=== PATIENT | male | born 1965 | race Caucasian/White ===

== ENCOUNTER 2018-03-18 15:25 | Emergency (ER) | payer BC, OTHER ==
[2018-03-18] MEDS: fentaNYL 100 MCG/2 ML SDV IVPUSH PRN ×2 (13:38→14:28)
--- NOTE | 2018-03-18 14:28 | EDM.PDOC ---
ED HPI GENERAL MEDICAL PROBLEM - General Chief Complaint: Trauma Stated Complaint: right hand pain Time Seen by Provider: 03/18/18 13:20 Source of Information: Reports: Patient, EMS History Limitations: Reports: No Limitations - History of Present Illness INITIAL COMMENTS - FREE TEXT/NARRATIVE: Patient presents per EMS with complaints of right hand pain. Was out working at [employer] in [place]. Was up on a ladder about 6 feet in the air working on equipment. The ladder started to tip and he grabbed on to the beam. Hand got caught between tin and a beam. He did fall to the ground, landed on his feet and fell to his buttocks. Did not lose consciousness nor hit his head. Has no neck pain. No chest discomfort or pelvic pain. No nausea/vomiting or abdominal pain. GCS 15. Bystander did help him to wrap hand as was bleeding. Last tetanus unknown. Onset: Today, Sudden Duration: Minutes: Location: Reports: Upper Extremity, Right Quality: Reports: Throbbing Severity: Severe Improves with: Reports: Rest Worsens with: Reports: Movement Treatments [employer]ER: Reports: Dressing(s) Right Hand Pain Score (Numeric/FACES): 8 - Related Data Allergies Allergy/AdvReac Type Severity Reaction Status Date / Time No Known Allergies Allergy Verified 03/18/18 14:42 Home Meds: Home Meds lamoTRIgine 200 mg PO ASDIRECTED 03/18/18 [History] Past Medical History - Past Health History Medical/Surgical History: Denies Medical/Surgical History - Past Surgical History Musculoskeletal Surgical History: Reports: Amputation (previous left hand trauma with amputation. Did have skin grafting to hand.) Social & Family History - Family History Family Medical History: Noncontributory - Tobacco Use Smoking Status *Q: Never Smoker Review of Systems - Review of Systems Review Of Systems: See Below Constitutional: Denies: Weakness Eyes: Denies: Blurred Vision Ears: Denies: Dizziness, Pain, Tinnitus, Bloody Discharge Nose: Denies: Clots, Congestion, Epistaxis Mouth/Throat: Denies: Throat Swelling Respiratory: Denies: Shortness of Breath, Cough Cardiovascular: Denies: Chest Pain, Palpitations, Syncope GI/Abdominal: Denies: Abdominal Pain, Nausea, Vomiting Genitourinary: Reports: No Symptoms Musculoskeletal: Reports: Hand Pain Skin: Reports: Wound Neurological: Denies: Dizziness, Headache, Weakness ED EXAM, GENERAL - Physical Exam Exam: See Below Free Text/Narrative:: Patient alert, answers all questions appropriately. GCS 15. Denies any head, neck or chest discomfort. Airway patent. Posterior pharynx is clear. Chest clear, nontender. Lung sounds are clear. Oxygen sats at high 90s on room air Cardiac reg S1S2. Abdomen soft, nontender. No pelvic tenderness. Exam Limited By: No Limitations General Appearance: Alert, WD/WN, Moderate Distress Eye Exam: Bilateral Eye: EOMI, PERRL Ears: Normal External Exam, Normal TMs Nose: Normal Inspection, Normal Mucosa, No Blood Throat/Mouth: Normal Inspection, Normal Oropharynx Head: Atraumatic, Normocephalic Neck: Normal Inspection, Supple, Non-Tender, Full Range of Motion Respiratory/Chest: No Respiratory Distress, Lungs Clear, Normal Breath Sounds Cardiovascular: Regular Rate, Rhythm Peripheral Pulses: 2+: Radial (L), Radial (R) GI/Abdominal: Normal Bowel Sounds, Soft, Non-Tender Back Exam: Normal Inspection, Full Range of Motion Extremities: Other (no pelvic instability. Right hand is wrapped initially on presentation to ER. Xrays were done. Has obvious dislocation of index finger at the PIP joint. Bandages removed. Multiple lacerations to the 2, 3, 4 digits. Obvious deformity of 2nd and 4th digits. 4th digit is nearly amputated with tendon, bone exposed. ) Neurological: Alert, Oriented Skin Exam: Ecchymosis (right jaramillo) ED TRAUMA PROCEDURES - Joint Reduction Site: Finger (R) (right index finger obvious deformity. Reduced with traction applied to finger) Sedation: Other (fentanyl IV given) Pre-Procedure NV Status: Abnormal Post-Procedure NV Status: Normal Technique: Traction/Counter Traction Number of Attempts: 2 Post-Reduction Imaging: Completely Reduced Joint Reduction Complications: No Progress/Comments: Patient tolerated reduction fairly well. Got nauseated after the procedure was complete. Course - Vital Signs Last Recorded V/S: Last Vital Signs Temp 98 F 03/18/18 15:13 Pulse 102 H 03/18/18 15:13 Resp 18 03/18/18 15:13 BP 143/94 H 03/18/18 15:13 Pulse Ox 99 03/18/18 15:13 - Orders/Labs/Meds Orders: Active Orders 24 hr Category Date Time Status Vaccines to be Administered [RC] PER UNIT ROUTINE Care 03/18/18 14:13 Active Chest 2V [CR] Stat Exams 03/18/18 13:00 Taken Hand 2V Rt [CR] Stat Exams 03/18/18 13:47 Taken Hand Comp Min 3V Rt [CR] Stat Exams 03/18/18 13:01 Taken Pelvis 1V or 2V [CR] Stat Exams 03/18/18 13:01 Taken Meds: Medications Discontinued Medications Generic Name Dose Route Start Last Admin Trade Name Freq PRN Reason Stop Dose Admin Cefazolin Sodium 1 gm 03/18/18 14:13 03/18/18 14:54 Ancef IVPUSH 03/18/18 14:14 1 gm ONETIME ONE Administration Diphtheria/Tetanus/Acell Pertussis 0.5 ml 03/18/18 14:13 03/18/18 14:54 Adacel IM 03/18/18 14:14 0.5 ml .ONCE ONE Administration Fentanyl 50 mcg 03/18/18 13:03 03/18/18 14:28 Sublimaze IVPUSH 50 mcg Q1H PRN Administration Pain Lactated Ringer's Confirm 03/18/18 13:25 03/18/18 13:53 Ringers, Lactated Administered 03/18/18 13:26 Not Given Dose 1,000 mls @ as directed .ROUTE .STK-MED ONE Lactated Ringer's 1,000 mls @ 200 mls/hr 03/18/18 13:45 03/18/18 13:52 Ringers, Lactated IV 200 mls/hr ASDIRECTED KATELYNN Administration Ondansetron HCl 4 mg 03/18/18 14:21 Zofran IVPUSH Q6H PRN Nausea - Re-Assessments/Exams Free Text/Narrative Re-Assessment/Exam: 03/18/18 1415 Xray report received from [place]. Other chest xray and pelvic xray are clear. Ancef 1 gm and Tdap to be given. Splints applied to 2nd and 4th digits of right hand. Did contact Dr. Yanes at [facility] with status of hand. Accepted the patient in transfer. Will continue Fentanyl IV every hour as needed for pain enroute to [place]. IV LR infusing Departure - Departure Time of Disposition: 14:26 Disposition: DC/Tfer to Acute Hospital 02 Condition: Undetermined Clinical Impression: Open dislocation of finger, Hand trauma - Discharge Information *PRESCRIPTION DRUG MONITORING PROGRAM REVIEWED*: No *COPY OF PRESCRIPTION DRUG MONITORING REPORT IN PATIENT LUCIANO: No Referrals: PCP,None [Primary Care Provider] - Forms: ED Department Discharge Additional Instructions: Transfer ALS to [facility]anes at [facility] - My Orders Last 24 Hours: My Active Orders 03/18/18 13:00 Chest 2V [CR] Stat 03/18/18 13:01 Hand Comp Min 3V Rt [CR] Stat Pelvis 1V or 2V [CR] Stat 03/18/18 13:47 Hand 2V Rt [CR] Stat 03/18/18 14:13 Vaccines to be Administered [RC] PER UNIT ROUTINE - Assessment/Plan Last 24 Hours: My Active Orders 03/18/18 13:00 Chest 2V [CR] Stat 03/18/18 13:01 Hand Comp Min 3V Rt [CR] Stat Pelvis 1V or 2V [CR] Stat 03/18/18 13:47 Hand 2V Rt [CR] Stat 03/18/18 14:13 Vaccines to be Administered [RC] PER UNIT ROUTINE
[2018-03-18 15:22] VITALS: BP 143/94
[~2018-03-18 15:25] MED LIST: Diphtheria,Pertussis(Acell),Tetanus Vaccine 0.5 ML Syringe IM ONE; Lactated Ringers 1,000 ML IV SCH; Lactated Ringers 1,000 ML ONE; Ondansetron 4 MG/2 ML SDV IVPUSH PRN; ceFAZolin 1 GM Vial IVPUSH ONE
== END 2018-03-18 16:09 ==
LOC: CC.ED 15:25
DX: S63.280A Dislocation of proximal interphalangeal joint of right index finger, initial encounter (principal); S63.254A Unspecified dislocation of right ring finger, initial encounter; S61.212A Laceration without foreign body of right middle finger without damage to nail, initial encounter; W11.XXXA Fall on and from ladder, initial encounter
CPT/HCPCS: 26770; 71046; 72170; 73120-RT; 73130-RT; 90471; 90715; 96361; 96374; 96375; 96376; 99285; J0690; J3010; J7120